=== PATIENT | male | born 1945 | race Caucasian/White ===

== ENCOUNTER 2022-10-16 12:23 | Inpatient (IN) | payer MEDICARE, MEDICAID, SELFPAY ==
[2022-10-16] VITALS (14 sets, daily range): BP systolic 103–124; BP diastolic 49–75; PULSE 61–98; RESP 15–34; TEMP 36.4–37.1; O2SAT 94–98; BMI 14.1
--- NOTE | 2022-10-16 12:38 | ED_ITS ---
HPI - SOB/Dyspnea General: Chief Complaint: Shortness of Breath/Dyspnea Stated Complaint: RESP. DISTRESS Time Seen by Provider: 10/16/22 12:38 History of Present Illness: HPI Narrative: Mr Rodriguez is a 77-year-old gentleman with longstanding history of tobaccoism presenting to the emergency department for respiratory symptoms. The patient himself has not seen a doctor in some period of time and denies known medical diagnoses. He reports worsening respiratory state for years however perhaps worse over the past few days. He notes increased weakness, fatigue, cough, low back pain, generalized malaise. Intensity symptoms is severe. He does not require oxygen at baseline however is currently requiring supplemental oxygen. No other specific changes in health, exacerbating, or alleviating factors identified. Onset (ago): year(s) Context: other Timing: progressively worsening Severity: severe Exacerbating factors: exertion Relieving factors: nothing Known history of: other (Cigarette smoking) Associated symptoms: Reports chest pain, cough and other Review of Systems General: Reports: 10 or more systems reviewed and unremarkable except in HPI and below Card: Reports: chest pain [facility] ED PFSH: Medical History (Updated 10/19/22 @ 16:39 by Herman Evans MD) Pulmonary cachexia due to COPD Tobacco use disorder Surgical History (Updated 10/16/22 @ 16:35 by Herman Evans MD) History of appendectomy History of hernia repair Family History Father CAD (coronary artery disease) Myocardial infarction Social History Smoking and tobacco status: current every day smoker Alcohol intake: former Substance/Drug Use: never Physical Exam Const: COMMON NORMALS: alert GENERAL APPEARANCE: cooperative and ill appe aring NUTRITIONAL APPEARANCE: cachectic HENMT: COMMON NORMALS: normocephalic and atraumatic HEAD & SCALP: normocephalic and atraumatic Eye: COMMON NORMALS: conjunctivae normal CONJUNCTIVA: Yes conjunctivae normal SCLERA: sclerae normal Neck/C-Spine: COMMON NORMALS: supple GENERAL: Yes trachea midline Resp: EFFORT & INSPECTION: Yes tachypneic AUSCULTATION: diminished lung sounds Cardio: COMMON NORMALS: regular rate and regular rhythm RATE: regular rate RHYTHM: regular rhythm GI: COMMON NORMALS: Soft to palpation PALPATION: Yes Soft to palpation and No Tenderness to palpation present (GI) Extremity: GENERAL: Yes normal exam except as noted and No edema Neuro: COMMON NORMALS: moves all extremities SENSORIUM/ORIENTATION: Yes alert and No Orientation impaired Psych: COMMON NORMALS: mental status grossly normal and Normal thought process present THOUGHT PROCESS: Normal thought process present Course Vital Signs: Vital signs: Vital Signs Temperature 98.1 F 10/19/22 19:39 Pulse Rate 68 10/19/22 20:50 Respiratory Rate 15 10/19/22 20:50 Blood Pressure 103/49 10/19/22 19:39 Pulse Oximetry 96 10/19/22 20:50 Oxygen Delivery Me thod Oxymask 10/19/22 20:50 Oxygen Flow Rate 2 10/19/22 20:50 Fraction of Inspir ed Oxygen 35 10/16/22 13:34 MDM - SOB/Dyspnea Medical Decision Making 77-year-old gentleman presenting to the ER for respiratory distress. He is requ iring supplemental oxygen which is new for him. Clinically patient appears to, certainly have severe end-stage COPD however he is never formally been diagnosed. EKG demonstrate sinus rhythm with mild irregularity, normal axis and intervals, nonspecific ST segment abnormalities, no STEMI. ABG demonstrates hypercapnic hypoxic respiratory failure and RT treatment/BiPAP ordered. Labs otherwise with no leukocytosis, normal hemoglobin and platelet count. Metabolic panel without significant derangement to explain symptoms. Borderline range 2-hour delta troponin. COVID-negative. Chest x-ray with possible lung nodule, no lobar consolidation or pneumothorax. During ED course patient treated with RT treatment, steroids, antibiotics. He still requires supplemental oxygen/BiPAP. Most likely allergy of patient symptoms is exacerbation of underlying COPD. The results of ED evaluation were discussed with the patient including plan for admission due to requirement for level of care not available if discharged to prevent significant worsening/deterioration. Patient agreeable with plan. Discussed with hospitalist service who was agreeable to admit patient. Medical Records I reviewed the patient's medical records. Lab Data I reviewed the patient's lab results. 10/16/22 12:05 10/16/22 12:05 Labs/Radiology: Radiology Impressions Chest X-Ray 10/16/22 12:51 IMPRESSION: Severe emphysema particularly in the upper lobes. No focal consolidation to suggest pneumonia. Suspected about 1.2 cm lung nodule in the left midlung. If no prior films are available for comparison to confirm long-term stability further evaluation with CT chest is recommended. Chest CT 10/16/22 16:27 IMPRESSION: 1. No lung nodule in the left midlung corresponding to the finding described in the report of chest x-ray of the same date. 12 x 4 mm linear spiculated density posteriorly in the right upper lobe likely represents a scar. If no prior CT is available to confirm long-term stability 3 months follow-up is recommended to exclude progression. 2. Severe emphysema and chronic bronchitis with no acute opacity to suggest pneumonia. The right ventricle is larger than the left ventricle with no cardiomegaly for clinical correlation with pulmonary hypertension. 3. 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 Clinical correlation is recommended. COMMENTS: In the absence of a history or active diagnosis of lung cancer, it is recommended that this patient with emphysema be evaluated for enrollment in a low dose CT lung cancer screening program. Laboratory Results WBC 5.6 10^3/uL (4.0-10.0) 10/16/22 12:05 RBC 4.59 10^6/uL (4.1-5.3) 10/16/22 12:05 Hgb 15.1 g/dL (11.7-16.6) 10/16/22 12:05 Hct 47.7 % (42.0-52.0) 10/16/22 12:05 MCV 103.9 fl (80-94) H 10/16/22 12:05 MCH 32.9 pg (28.0-34.0) 10/16/22 12:05 MCHC 31.7 g/dL (30.0-36.0) 10/16/22 12:05 RDW 13.0 % (12.1-15.1) 10/16/22 12:05 Plt Count 199 10^3/cmm (130-400) 10/16/22 12:05 MPV 10.2 fL (7.4-10.4) 10/16/22 12:05 Neut % (Auto) 70.9 % 10/16/22 12:05 Lymph % (Auto) 10.8 % 10/16/22 12:05 Hyde % (Auto) 17.2 % 10/16/22 12:05 Eos % (Auto) 0.0 % 10/16/22 12:05 Baso % (Auto) 0.9 % 10/16/22 12:05 Neut # (Auto) 4.00 10^3/uL (1.8-7.7) 10/16/22 12:05 Lymph # (Auto) 0.6 10^3/uL (0.8-4.8) L 10/16/22 12:05 [place] # (Auto) 1.0 10^3/uL (0.2-0.9) H 10/16/22 12:05 Eos # (Auto) 0.0 10^3/uL (0.0-0.8) 10/16/22 12:05 Baso # (Auto) 0.1 10^3/uL (0.0-0.1) 10/16/22 12:05 Nucleated RBC % (auto) 0 % 10/16/22 12:05 Nucleated RBCs # 0.0 /100WBC 10/16/22 12:05 Specimen Type Arterial 10/16/22 13:03 Sample Site Radial, right 10/16/22 13:03 ABG pH 7.30 (7.35-7.45) L 10/16/22 13:03 ABG pCO2 63.0 mmHg (35-45) H* 10/16/22 13:03 ABG pO2 87.4 mmHg (80.0-100.0) 10/16/22 13:03 ABG HCO3 30.6 mmol/L (22-26) H 10/16/22 13:03 ABG Base Excess 2.0 mmol/L (-2.0-2.0) 10/16/22 13:03 Humberto Test Pos 10/16/22 13:03 Hematocrit 48.7 % (42-52) 10/16/22 13:03 Hgb O2 Saturation 94.4 % (95-100) L 10/16/22 13:03 Carboxyhemoglobin 1.3 %THgb (0.4-20.1) 10/16/22 13:03 Methemoglobin 0.8 % (0.4-1.5) 10/16/22 13:03 Total Hemoglobin 15.9 g/dL (14-18) 10/16/22 13:03 O2 Delivery Device Nc 10/16/22 13:03 O2 Liters/Min 4.5 % 10/16/22 13:03 Commissioned Police Officer ID Carlos 10/16/22 13:03 Sodium 137 mmol/L (136-145) 10/16/22 12:05 Potassium 4.6 mmol/L (3.5-5.1) 10/16/22 12:05 Chloride 97 mmol/L (98-107) L 10/16/22 12:05 Carbon Dioxide 28 mmol/L (22-29) 10/16/22 12:05 Anion Gap 16.6 (5-19) 10/16/22 12:05 BUN 26 mg/dL (8-23) H 10/16/22 12:05 Creatinine 0.6 mg/dL (0.7-1.2) L 10/16/22 12:05 GFR Calculation Not Reportable 10/16/22 12:05 Glucose 129 mg/dL (65-115) H 10/16/22 12:05 Calculated Osmolality 290 mOsm/kg (285-295) 10/16/22 12:05 Lactic Acid 1.0 mmol/L (0.5-2.2) 10/16/22 14:56 Calcium 8.4 mg/dL (8.5-10.5) L 10/16/22 12:05 Total Bilirubin 0.2 mg/dL (0.15-1.2) 10/16/22 12:05 AST 31 U/L (0-40) 10/16/22 12:05 ALT 23 U/L (0-41) 10/16/22 12:05 Alkaline Phosphatase 91 U/L (40-130) 10/16/22 12:05 Troponin T Baseline 41 ng/L (0-15) H 10/16/22 12:05 Troponin T 120 Minute 49.49 ng/L (0-15) H 10/16/22 14:42 Delta Troponin T 8.49 ABS# (0-10) 10/16/22 14:42 Troponin T Hi Sens 6Hr 39.49 ng/L (0-15) H 10/16/22 19:00 Troponin T Hi Sens 6Hr Delta -1.51 ng/L (0-12) L 10/16/22 19:00 C-Reactive Protein 36.3 mg/L (0.0-4.9) H 10/16/22 12:05 NT-Pro-B Natriuret Pep 584 pg/mL (0-450) H 10/16/22 12:05 Total Protein 6.5 g/dL (6.6-8.7) L 10/16/22 12:05 Albumin 3.9 g/dL (3.5-5.2) 10/16/22 12:05 Globulin 2.6 g/dL (1.3-4.6) 10/16/22 12:05 Procalcitonin 0.22 ng/mL (0-0.5) 10/16/22 12:05 SARS-CoV-2 Ag (Rapid) negative (Negative) 10/16/22 19:07 Discharge Plan Discharge Patient Disposition: Placed in Observation Admit Provider: Herman Evans Clinical Impression: Acute exacerbation of chronic obstructive airways disease, Respiratory failure with hypoxia and hypercapnia Coding Level of Care Code ED Coiled Coil Inspector for Vesna Douglas
--- NOTE | 2022-10-16 12:51 | XRR_ITS ---
PROCEDURE INFORMATION: Exam: XR Chest Exam date and time: 10/16/2022 1:17 PM Age: 77 years old Clinical indication: Shortness of breath; Additional info: SOB TECHNIQUE: Imaging protocol: Radiologic exam of the chest. Views: 1 view. COMPARISON: No relevant prior studies available. FINDINGS: Lungs: Large lung volumes with loss of normal interstitial markings laterally in the lung apices compatible with severe emphysema. No focal consolidation. Questionable about 1.2 cm lung nodule in the left mid lung laterally interposed on the anterior segment of the left 5th rib. Pleural spaces: No pleural effusion. No pneumothorax. Heart/Mediastinum: No cardiomegaly. Bones/joints: No acute findings. XR/XR chest 1V portable [id number] IMPRESSION: Severe emphysema particularly in the upper lobes. No focal consolidation to suggest pneumonia. Suspected about 1.2 cm lung nodule in the left midlung. If no prior films are available for comparison to confirm long-term stability further evaluation with CT chest is recommended.
--- NOTE | 2022-10-16 13:07 | ECG_ITS ---
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 Measurements Intervals [place] Rate: 89 P: 82 SC: 132 QRS: -81 QRSD: 88 T: 76 QT: 356 QTc: 434 Interpretive Statements SINUS RHYTHM WITH SINUS ARRHYTHMIA INDETERMINATE AXIS LOW QRS VOLTAGE IN PRECORDIAL LEADS [QRS DEFLECTION < 1.0 mV IN CHEST LEADS] POSSIBLE RIGHT VENTRICULAR CONDUCTION DELAY [RSR (QR) IN V1/V2] ANTEROSEPTAL MYOCARDIAL INFARCTION , OF INDETERMINATE AGE [40+ ms Q WAVE IN V1-V4] No previous ECG available for comparison Electronically Signed On 10-16-2022 16:57:22 CDT by Kavon Mckoy M.D. [id number]
[2022-10-16 13:10] LABS: Basophils # 0.1 10^3/uL (0.0-0.1); Basophils % 0.9 %; Hematocrit 47.7 % (42.0-52.0); Hemoglobin 15.1 g/dL (11.7-16.6); Lymphocytes # 0.6 10^3/uL (0.8-4.8); Lymphocytes % 10.8 %; Mean Corpuscular HGB Conc 31.7 g/dL (30.0-36.0); Mean Corpuscular Hemoglobin 32.9 pg (28.0-34.0); Mean Corpuscular Volume 103.9 fl (80-94); Mean Platelet Volume 10.2 fL (7.4-10.4); Monocytes % 17.2 %; Neutrophils % 70.9 %; Nucleated Red Blood Cells % 0 %; Platelet Count 199 10^3/cmm (130-400); Red Blood Count 4.59 10^6/uL (4.1-5.3); White Blood Count 5.6 10^3/uL (4.0-10.0)
[2022-10-16 13:14] LABS: Arterial Blood Gas Hematocrit 48.7 % (42-52); Blood Gas Allen Test Pos; Blood Gas LPM 4.5 %; Blood Gas Operator Identificat WALCI; Blood Gas Sample Site Radial, right; Blood Gas Sample Type Arterial; Carboxyhemoglobin 1.3 %THgb (0.4-20.1); HCO3 ABG 30.6 mmol/L (22-26); HGB O2 Sat 94.4 % (95-100); Methemoglobin 0.8 % (0.4-1.5); Oxygen Device NC; PO2 ABG 87.4 mmHg (80.0-100.0); Total Hemoglobin 15.9 g/dL (14-18)
[2022-10-16] MEDS: ipratropium-albuterol 3 mL Neb INHALATION ×2 (13:28→20:47)
[2022-10-16 13:30] LABS: Troponin(5th) Baseline 41 ng/L (0-15)
[2022-10-16 13:35] LABS: NT Pro B Type Natriuretic Pept 584 pg/mL (0-450); Procalcitonin 0.22 ng/mL (0-0.5)
[2022-10-16 13:46] LABS: Alanine Aminotransferase 23 U/L (0-41); Albumin Level 3.9 g/dL (3.5-5.2); Alkaline Phosphatase 91 U/L (40-130); Anion Gap 16.6 (5-19); Aspartate Amino Transferase 31 U/L (0-40); Blood Urea Nitrogen 26 mg/dL (8-23); C Reactive Protein 36.3 mg/L (0.0-4.9); Calcium 8.4 mg/dL (8.5-10.5); Carbon Dioxide 28 mmol/L (22-29); Chloride 97 mmol/L (98-107); Globulin 2.6 g/dL (1.3-4.6); Glucose 129 mg/dL (65-115); Osmolality Calculated 290 mOsm/kg (285-295); Potassium 4.6 mmol/L (3.5-5.1); Sodium 137 mmol/L (136-145); Total Bilirubin 0.2 mg/dL (0.15-1.2); Total Protein 6.5 g/dL (6.6-8.7)
[2022-10-16] MEDS: cefTRIAXone 1,000 MG in sodium chloride 0.9% (plus) 50 ML 100 MG IV (14:22)
[2022-10-16] MEDS: dexamethasone 10 mg/mL INJ IVP (14:22)
[2022-10-16] MEDS: doxycycline 100 MG in sodium chloride 0.9% (plus) 100 ML IV (14:23)
--- NOTE | 2022-10-16 14:47 | P.HP_ITS ---
Providers/Chief Complaint Admitting Physician: Herman Evans MD Primary Care Provider: Kb Henson MD Chief Complaint: RESP. DISTRESS History of Present Illness Hung Rodriguez is a 77 year old male with a past medical history significant for tobacco use disorder who presents to the emergency department with severe respiratory distress. Patient reports breathing difficulty even at rest for the past three days. He notes that for the past many years he gets short of breath with minimal exertion. Also endorses chronic non-productive cough. He reports he has not seen a physician in many years but his breathing has markedly worsen the past three days prompting him to seek care. Reports exertion worsens symptoms. Resting somewhat helps his symptoms. Denies other aggravating or alleviating factors. He reports an extensive history of cigarette smoking. He reports he starting smoking cigarettes at age 12. He reports at his max, he was smoking four to five packs of unfiltered cigarettes per day. He reports about 8 years ago he switched to filtered cigarettes. He reports more recently he has reduced his smoking to half to one pack per day. He denies fevers, nausea, emesis, chest pain, or abdominal pain. In the ED, patient was found to have hypercapnic respiratory failure requiring non-invasive mechanical ventilation. Review of Systems Narrative: A complete review of systems was obtained and is negative except as stated in HPI. Medications/Allergies Home Medications Medication Instructions Recorded Confirmed Last Taken Type No Known Home Medications 10/16/22 10/16/22 Unknown History Allergies Allergy/AdvReac Type Severity Reaction Status Date / Time No Known Allergies Allergy Unverified 10/16/22 12:55 PFSH Acute PFSH: Medical History (Updated 10/16/22 @ 16:36 by Herman Evans MD) Pulmonary cachexia due to COPD Tobacco use disorder Surgical History (Updated 10/16/22 @ 16:35 by Herman Evans MD) History of appendectomy History of hernia repair Family History Father CAD (coronary artery disease) Myocardial infarction Social History Smoking and tobacco status: current every day smoker Alcohol intake: former Substance/Drug Use: never Vitals/I&O/Wt Last Vital Signs Pulse 88 10/16/22 13:36 Resp 18 10/16/22 14:00 BP 103/65 10/16/22 14:00 Pulse Ox 98 10/16/22 14:00 O2 Del Method BiPAP 10/16/22 13:24 FiO2 35 10/16/22 13:34 Weight last 48 hrs Weight 40.823 kg Physical Exam Narrative: General: Patient is in respiratory distress. Frail and cachetic appearing. Head: Temporal wasting. EOMI. Neck: No JVD. Cardiovascular: RRR. No gallops. No murmurs. No peripheral edema. Lungs: Poor air movement. Faint end expiratory wheezing. Moderate to severe respiratory distress. Speaks in very short sentences. Tachypnea. Skin: No jaundice. No rashes. Abdomen: Normal bowel sounds, abdomen soft and nontender. Scaphoid. Genito Urinary: Genital exam not performed since complaints not related. Rectal: Rectal exam not performed since no symptoms indicated blood loss. Extremities: No cyanosis or clubbing. Musculoskeletal: No swollen or erythematous joints. Neurological: Moves all 4 extremities. No myoclonus. Data 10/16/22 12:05 10/16/22 12:05 A&P Assessment and plan (1) Acute exacerbation of chronic obstructive airways disease: Acute COPD/emphysema exacerbation Severe emphysema on imaging No PFTs for review Status post IV steroids in ED Start prednisone in AM Start DuoNebs RT eval and treat Pulse oximetry Start azithromycin, QTc reviewed (2) Respiratory failure with hypoxia and hypercapnia: Acute hypoxic hypercapnic respiratory failure requiring non-invasive mechanical ventilation 2/2 acute COPD exacerbation BiPAP as needed Serial blood bases as needed Treat underlying COPD (3) Pulmonary nodule: Patient reports if malignancy, he would not want treatment He consents to CT chest w/ contrast to further evaluate (4) Myocardial injury: Elevated troponin and BNP Denies chest pain Trend troponin Echocardiogram ordered (5) Tobacco use disorder: Would benefit from cessation (6) Pulmonary cachexia due to COPD: Supportive care Plan DVT ppx: Low Risk Code Status: Full Code Attestations 2 Medical Necessity Statement*: Patient presents with severe respiratory distress secondary to acute COPD exacerbation requiring non-invasive mechanical ventilation with expected hospitalization for further work up and treatment not expected to cross two midnights. Coding Level of Care Code Acute Code for [facility] Fwd Diagnoses Acute exacerbation of chronic obstructive airways disease J44.1 Respiratory failure with hypoxia and hypercapnia J96.91; J96.92 Pulmonary nodule R91.1 Myocardial injury I5A Tobacco use disorder F17.200 Pulmonary cachexia due to COPD J44.9; R64
[2022-10-16] MEDS: albuterol 2.5 mg/3 mL Neb INHALATION ×3 (14:52)
[2022-10-16 15:11] LABS: Troponin 5 2HR 49.49 ng/L (0-15)
[2022-10-16 15:20] LABS: Troponin 5 2HR Delta 8.49 ABS# (0-10)
--- NOTE | 2022-10-16 16:27 | CTR_ITS ---
PROCEDURE INFORMATION: Exam: CT Chest With Contrast; Diagnostic Exam date and time: 10/16/2022 6:00 PM Age: 77 years old Clinical indication: Cough and shortness of breath; Smoker's cough, severe emphysema. Abnormal radiologic finding (questionable 1.2 cm lung nodule in the left midlung on chest x-ray of the same date). Evaluate for malignancy. TECHNIQUE: Imaging protocol: Diagnostic computed tomography of the chest with contrast. Radiation optimization: All CT scans at this facility use at least one of these dose optimization techniques: automated exposure control; mA and/or kV adjustment per patient size (includes targeted exams where dose is matched to clinical indication); or iterative reconstruction. Contrast material: OMNI 350; Contrast volume: 100 ml; Contrast route: INTRAVENOUS (IV); REPORTING DATA: Count of CT and Cardiac NM exams in prior 12 months: This patient has received 0 known CTs and 0 known cardiac nuclear medicine studies in the 12 months prior to the current study. COMPARISON: CR XR chest 1V portable [id number] 10/16/2022 1:17 PM RADIATION DOSE METRICS: Total DLP (mGy-cm): 235 FINDINGS: Lungs: There is severe emphysema. There is no acute opacity to suggest pneumonia. There is mild bronchial thickening in the lower lobes suggestive of bronchitis. There are no significant retained endobronchial secretions. There is no lung nodule in the left midlung corresponding to finding described in the report of CT chest of the same date. 12 x 4 mm linear spiculated density posteriorly in the right upper lobe on series 3, image 17 likely represents a scar. Pleural spaces: Unremarkable. No pneumothorax. No pleural effusion. Heart: No cardiomegaly. The right ventricle is larger than the left ventricle. No pericardial effusion. Coronary arteries: Mild coronary artery calcification is present. Lymph nodes: No enlarged lymph nodes. Vasculature: There is complete occlusion of the abdominal aorta immediately below the origin of the renal arteries. There are multiple arterial collaterals in the anterior and lateral abdominal wall and in the paravertebral areas suggestive of chronic rather than acute aortic occlusion. No aortic aneurysm. No pulmonary embolism. Bones/joints: No acute fracture. No suspicious lytic or sclerotic bone lesions. Soft tissues: Unremarkable. CT/CT chest w con* [id number] IMPRESSION: 1. No lung nodule in the left midlung corresponding to the finding described in the report of chest x-ray of the same date. 12 x 4 mm linear spiculated density posteriorly in the right upper lobe likely represents a scar. If no prior CT is available to confirm long-term stability 3 months follow-up is recommended to exclude progression. 2. Severe emphysema and chronic bronchitis with no acute opacity to suggest pneumonia. The right ventricle is larger than the left ventricle with no cardiomegaly for clinical correlation with pulmonary hypertension. 3. 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 Clinical correlation is recommended. COMMENTS: In the absence of a history or active diagnosis of lung cancer, it is recommended that this patient with emphysema be evaluated for enrollment in a low dose CT lung cancer screening program.
--- NOTE | 2022-10-16 16:27 | USCV_ITS ---
Hung Rodriguez Age: 77 Gender: M : 1945 Exam Date: 10/16/2022 19:03 Ordering Phys: Herman Evans MD Technologist: KANDI Exam Location: [facility] [place] Indication: tobaccoism, hypoxia, elevated troponin. BP: 122 / 67 HR: 91 Rhythm: Partly atrial fibrillation, some strings of sinus rhythm Technical Quality: Adequate MEASUREMENTS (Male / Female) Normal Values 2D ECHO LV Diastolic Diameter PLAX 3.1 cm 4.2 - 5.9 / 3.9 - 5.3 cm LV Systolic Diameter PLAX 1.8 cm IVS Diastolic Thickness 1.0 cm 0.6 - 1.0 / 0.6 - 0.9 cm IVS Systolic Thickness 0.8 cm LVPW Diastolic Thickness 0.9 cm 0.6 - 1.0 / 0.6 - 0.9 cm LVPW Systolic Thickness 1.4 cm LVOT Diameter 1.8 cm LV Ejection Fraction 2D Teich 72.8 % LV Ejection Fraction MOD 2C 55.1 % LV Ejection Fraction 2C AL 54.7 % LA Diameter 2.5 cm LA Width 3.4 cm LA Height 4.4 cm RA Width 3.0 cm RA Height 2.8 cm Aorta at Sinotubular Diameter 2.9 cm IVC Diameter 1.6 cm M-MODE Aortic Annulus Diameter 3.2 cm LA Ao Ratio MM 0.8 MV E Point Septal Separation 0.0 cm DOPPLER AV Peak Velocity 141.0 cm/s LVOT Peak Velocity 77.0 cm/s AV Area Cont Eq vti 1.3 cm squared AV Area Cont Eq pk 1.4 cm squared MV Area PHT 3.7 cm squared Mitral E to A Ratio 0.8 MV E' Velocity 74.0 cm/s TR Peak Velocity 270.0 cm/s TR Peak Gradient 29.2 mmHg TV Peak E Velocity 39.0 cm/s Right Atrial Pressure 5.0 mmHg Pulmonary Artery Systolic Pressu 34.2 mmHg PV Peak Velocity 100.0 cm/s RV Acceleration Time 0.1 s RV Ejection Time 0.4 s RV AcT/ET 0.4 FINDINGS Left Ventricle Technically difficult study. Only subcostal views were obtained. Possibly normal LV size and ejection fraction. Right Ventricle The right ventricle appears to be dilated with a diminished ejection fraction. Right Atrium Mildly dilated right atrium Left Atrium Possibly of normal size Mitral Valve Thickened mitral valve. Aortic Valve Thickened aortic valve. Tricuspid Valve Trace to mild tricuspid valve regurgitation. Pulmonic Valve No gross abnormality noted Pericardium No pericardial effusion. Aorta Normal aortic annulus size. IVC Inferior vena cava not visualized. CONCLUSIONS Technically difficult study. Only subcostal views were obtained. Possibly normal LV size and ejection fraction. The right ventricle appears to be dilated with a diminished ejection fraction. Mildly dilated right atrium. Thickened aortic and mitral valves Trace to mild tricuspid valve regurgitation. Estimated PA pressure of 34 mmHg, could be an underestimation because of poor Doppler signals Dr Clarissa Downs MD FAC (Electronically Signed) Final Date: 16 Oct 2022 21:37 S
--- NOTE | 2022-10-16 17:00 | ECG_ITS ---
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 Measurements Intervals [place] Rate: 69 P: 82 ME: 151 QRS: 66 QRSD: 90 T: 78 QT: 377 QTc: 406 Interpretive Statements SINUS RHYTHM INDETERMINATE AXIS LOW QRS VOLTAGE IN PRECORDIAL LEADS [QRS DEFLECTION < 1.0 mV IN CHEST LEADS] POSSIBLE RIGHT VENTRICULAR CONDUCTION DELAY [RSR (QR) IN V1/V2] ANTEROSEPTAL MYOCARDIAL INFARCTION , OF INDETERMINATE AGE [40+ ms Q WAVE IN V1-V4] Compared to ECG 10/16/2022 13:07:29 Sinus arrhythmia no longer present Myocardial infarct finding still present Electronically Signed On 10-17-2022 7:19:23 CDT by Kavon Mckoy M.D. [id number]
[2022-10-16] MEDS: iohexol 350 mg/mL 500 mL Btl (per mL) IV (18:04)
--- NOTE | 2022-10-16 18:52 | ECG_ITS ---
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 Measurements Intervals [place] Rate: 87 P: 77 IN: 144 QRS: -1 QRSD: 82 T: 67 QT: 374 QTc: 451 Interpretive Statements SINUS RHYTHM WITH SINUS ARRHYTHMIA INDETERMINATE AXIS LOW QRS VOLTAGE IN PRECORDIAL LEADS [QRS DEFLECTION < 1.0 mV IN CHEST LEADS] PATTERN CONSISTENT WITH PULMONARY DISEASE POSSIBLE RIGHT VENTRICULAR CONDUCTION DELAY [RSR (QR) IN V1/V2] SEPTAL MYOCARDIAL INFARCTION , PROBABLY OLD [40+ ms Q WAVE IN V1/V2] Compared to ECG 10/16/2022 17:00:22 No significant changes Electronically Signed On 10-17-2022 7:19:53 CDT by Kavon Mckoy M.D. [id number]
[2022-10-16 19:32] LABS: Troponin 5 6HR 39.49 ng/L (0-15); Troponin 5 6HR Delta -1.51 ng/L (0-12)
[2022-10-16 19:45] LABS: SARS Covid-2 Antigen negative (Negative)
[2022-10-17] VITALS (12 sets, daily range): BP systolic 104–131; BP diastolic 51–64; PULSE 56–79; RESP 15–20; TEMP 36.6–36.8; O2SAT 91–99
[2022-10-17] MEDS: ipratropium-albuterol 3 mL Neb INHALATION ×4 (01:05→20:31)
[2022-10-17] MEDS: predniSONE 20 mg Tablet 40 MG PO (08:32)
[2022-10-17] MEDS: azithromycin 250 mg Tablet 500 MG PO (08:32)
--- NOTE | 2022-10-17 13:03 | PM.PN ---
Subjective Subjective: Patient remains in respiratory distress albeit improved from prior exam. Endorses shortness of breath with cough often with prolonged coughing episodes. Reports cough remains non-productive. Denies fevers, chillls, nausea or emesis. Vitals/I&O/Wt Last Vital Signs Temp 98.2 F 10/17/22 07:30 Pulse 65 10/17/22 07:56 Resp 18 10/17/22 07:56 BP 112/62 10/17/22 07:30 Pulse Ox 93 10/17/22 07:56 O2 Del Method Nasal Cannula 10/17/22 07:56 O2 Flow Rate 4 10/17/22 08:00 FiO2 35 10/16/22 13:34 10/16/22 10/17/22 10/17/22 22:59 06:59 14:59 Intake Total 750 / 750 240 / 990 Output Total 250 / 250 250 / 500 Balance 500 / 500 -10 / 490 Weight last 48 hrs Weight 40.823 kg Physical Exam Narrative: General: Patient is in mild to moderate respiratory distress. Frail and cachetic appearing. Head: Temporal wasting. EOMI. Neck: No JVD. Cardiovascular: RRR. No gallops. No murmurs. No peripheral edema. Lungs: Poor air movement. Faint end expiratory wheezing. Mild to moderate respiratory distress. Speaks in short sentences. Tachypnea. Skin: No jaundice. No rashes. Abdomen: Normal bowel sounds, abdomen soft and nontender. Scaphoid. Extremities: No cyanosis or clubbing. Musculoskeletal: No swollen or erythematous joints. Neurological: Moves all 4 extremities. No myoclonus. Data 10/16/22 12:05 10/16/22 12:05 A&P Assessment and plan (1) Acute exacerbation of chronic obstructive airways disease: Acute COPD/emphysema exacerbation Severe emphysema Remains in respiratory distress, not responding to treatment as intended Continue prednisone Continue DuoNebs Continue azithromycin (2) Respiratory failure with hypoxia and hypercapnia: Acute hypoxic hypercapnic respiratory failure requiring non-invasive mechanical ventilation 2/2 acute COPD exacerbation Continue supplemental respiratory support Will need walk study prior to discharge Treat underlying COPD (3) Pulmonary nodule: CT reviewed, findings suggestive of scaring Can follow up with repeat imaging as outpatient (4) Myocardial injury: TTE reviewed, right-sided abnormalities noted as expected given advanced lung disease (5) Tobacco use disorder: Would benefit from cessation (6) Pulmonary cachexia due to COPD: Supportive care Plan DVT ppx: Low Risk Code Status: Full Code Attestations Medical Necessity Statement*: Patient remains in respiratory distress for which he requires ongoing hospitalization for supplemental respiratory support and monitoring, steroids, nebulizing therapies, and supportive care. Coding Level of Care Code Acute Code for [facility] Fwd Diagnoses Acute exacerbation of chronic obstructive airways disease J44.1 Respiratory failure with hypoxia and hypercapnia J96.91; J96.92 Pulmonary nodule R91.1 Myocardial injury I5A Tobacco use disorder F17.200 Pulmonary cachexia due to COPD J44.9; R64
[2022-10-18] VITALS (12 sets, daily range): BP systolic 105–112; BP diastolic 53–65; PULSE 59–76; RESP 16–18; TEMP 36.4–36.7; O2SAT 94–98
[2022-10-18] MEDS: ipratropium-albuterol 3 mL Neb INHALATION ×4 (03:12→20:21)
[2022-10-18] MEDS: predniSONE 20 mg Tablet 40 MG PO (08:48)
[2022-10-18] MEDS: azithromycin 250 mg Tablet 500 MG PO (08:49)
--- NOTE | 2022-10-18 13:08 | PM.PN ---
Subjective Subjective: Patient reports he is still extremely short of breath even at rest he is short of breath. Reports he hasn't been out of bed much due to breathlessness. Reports ongoing cough, mostly non-productive still. Denies fevers, or chills. Reports appetite is ok. He states he doesn't think he is going to be able to care for his partner at home any longer as he feels like he has gotten too weak. Medications: Reviewed: Yes Vitals/I&O/Wt Last Vital Signs Temp 97.7 F 10/18/22 11:52 Pulse 66 10/18/22 11:52 Resp 18 10/18/22 11:52 BP 105/57 10/18/22 11:52 Pulse Ox 94 10/18/22 11:52 O2 Del Method Nasal Cannula 10/18/22 11:52 O2 Flow Rate 3 10/18/22 08:20 FiO2 35 10/16/22 13:34 10/17/22 10/18/22 10/18/22 22:59 06:59 14:59 Intake Total 200 / 320 250 / 570 Output Total 750 / 750 Balance 200 / 320 250 / 570 -750 / -750 Physical Exam Narrative: General: Patient is awake. Very frail and cachetic appearing. Very polite. Head: Temporal wasting. EOMI. Neck: No JVD. Cardiovascular: RRR. No gallops. No murmurs. No peripheral edema. Lungs: Poor air movement. Faint end expiratory wheezing. Still speaking in short sentences. Tachypnea when talking. Skin: No jaundice. No rashes. Abdomen: Normal bowel sounds, abdomen soft and nontender. Scaphoid. Extremities: No cyanosis or clubbing. Musculoskeletal: No swollen or erythematous joints. Neurological: Moves all 4 extremities. No myoclonus. Data 10/16/22 12:05 10/16/22 12:05 A&P Assessment and plan (1) Acute exacerbation of chronic obstructive airways disease: Acute COPD/emphysema exacerbation Severe emphysema a/q pulmonary cachexia Continue prednisone Continue DuoNebs Continue azithromycin (2) Respiratory failure with hypoxia and hypercapnia: Acute hypoxic hypercapnic respiratory failure requiring non-invasive mechanical ventilation 2/2 acute COPD exacerbation Continue supplemental respiratory support Will need walk study prior to discharge Treat underlying COPD (3) Pulmonary nodule: CT reviewed, findings suggestive of scaring, discuss findings kim/ Hung on 10/18 Can follow up with repeat imaging as outpatient (4) Myocardial injury: TTE reviewed, right-sided abnormalities noted as expected given advanced lung disease, d/w Hung (5) Tobacco use disorder: Would benefit from cessation (6) Pulmonary cachexia due to COPD: Supportive care Plan DVT ppx: Low Risk Code Status: Full Code Attestations Medical Necessity Statement*: Patient remains in severe COPD exacerbation and respiratory failure becoming symptomatic even at rest for which he requires ongoing hospitalization for supplemental respiratory support and monitoring, steroids, nebulizing therapies, and supportive care. Coding Level of Care Code Acute Code for g Fwd Diagnoses Acute exacerbation of chronic obstructive airways disease J44.1 Respiratory failure with hypoxia and hypercapnia J96.91; J96.92 Pulmonary nodule R91.1 Myocardial injury I5A Tobacco use disorder F17.200 Pulmonary cachexia due to COPD J44.9; R64
[2022-10-19] VITALS (14 sets, daily range): BP systolic 103–138; BP diastolic 43–82; PULSE 58–90; RESP 15–22; TEMP 36.6–37; O2SAT 93–99
[2022-10-19] MEDS: ipratropium-albuterol 3 mL Neb INHALATION ×4 (02:54→20:49)
[2022-10-19] MEDS: azithromycin 250 mg Tablet 500 MG PO (08:29)
[2022-10-19] MEDS: predniSONE 20 mg Tablet 40 MG PO (08:29)
--- NOTE | 2022-10-19 16:36 | PM.PN ---
Subjective Subjective: Patient reports he feels a little bit better today. He reports he was able to ambulate this morning a little bit which caused significant shortness of breath although improved from prior days. Continues to endorse cough which is nonproductive. Denies fevers, chills, nausea, or headaches. Medications: Reviewed: Yes Vitals/I&O/Wt Last Vital Signs Temp 98 F 10/19/22 16:00 Pulse 72 10/19/22 16:00 Resp 20 H 10/19/22 16:00 BP 114/43 10/19/22 16:00 Pulse Ox 93 10/19/22 16:00 O2 Del Method Nasal Cannula 10/19/22 13:40 O2 Flow Rate 2 10/19/22 13:40 FiO2 35 10/16/22 13:34 10/19/22 10/19/22 10/19/22 06:59 14:59 22:59 Intake Total 240 / 960 600 / 600 Balance 240 / 210 600 / 600 Physical Exam Narrative: General: Patient is awake. Very frail and cachetic appearing. Very polite. Lying in bed. Head: Temporal wasting. EOMI. Neck: No JVD. Cardiovascular: RRR. No gallops. No murmurs. No peripheral edema. Lungs: Slightly improved air movement. Able to speak in slightly longer sentences but still tachypnea when talking. Skin: No jaundice. No rashes. Abdomen: Normal bowel sounds, abdomen soft and nontender. Scaphoid. Extremities: No cyanosis or clubbing. Musculoskeletal: No swollen or erythematous joints. Neurological: Moves all 4 extremities. No myoclonus. Data 10/16/22 12:05 10/16/22 12:05 A&P Assessment and plan (1) Acute exacerbation of chronic obstructive airways disease: Acute COPD/emphysema exacerbation Severe emphysema a/q pulmonary cachexia Continue prednisone Continue DuoNebs Continue azithromycin (2) Respiratory failure with hypoxia and hypercapnia: Acute hypoxic hypercapnic respiratory failure requiring non-invasive mechanical ventilation 2/2 acute COPD exacerbation Continue supplemental respiratory support Will need walk study prior to discharge Treat underlying COPD (3) Pulmonary nodule: CT reviewed, findings suggestive of scaring, discuss findings kim/ Hung on 10/18 Can follow up with repeat imaging as outpatient (4) Myocardial injury: Continue supporitive care (5) Tobacco use disorder: Smoking cessation discussed for 4 minutes, patient is adamant he is not interested in quitting Encouraged smoking cessation Discussed harmful effects on his health (6) Pulmonary cachexia due to COPD: Supportive care (7) Debility: Debility physical deconditioning Physical therapy requested Plan DVT ppx: Low Risk Code Status: Full Code Attestations Medical Necessity Statement*: Patient requires ongoing hospitalization for ongoing respiratory distress for steroids, breathing treatments, and supportive care. Coding Level of Care Code Acute Code for [facility] Fwd Diagnoses Acute exacerbation of chronic obstructive airways disease J44.1 Respiratory failure with hypoxia and hypercapnia J96.91; J96.92 Pulmonary nodule R91.1 Myocardial injury I5A Tobacco use disorder F17.200 Pulmonary cachexia due to COPD J44.9; R64 Debility R53.81
[2022-10-19] MEDS: nicotine 21 mg Patch 1 PATCH TRANSDERMA (17:06)
--- NOTE | 2022-10-19 19:07 | PC.NURSE ---
BUSINESS SYSTEM MANAGER reported oxygen saturation of 83% at 1905. Patient refusing to wear nasal cannula, stating this his nose is sore and bleeding. This nurse attempted to educated patient and patient continued to refuse, stating that no one can make him wear it and that he will not be wearing it until his nose heals again.
--- NOTE | 2022-10-19 19:41 | PC.NURSE ---
Dr. Pan notified of patient refusing oxygen at 191. Dr. Pan requested patient be switched from nasal cannula to oxymask with humidification. Patient agreeable to wearing mask with humidifier, stated that it felt much more comfortable for his nose.
--- NOTE | 2022-10-19 21:02 | XRR_ITS ---
PROCEDURE INFORMATION: Exam: XR Chest Exam date and time: 10/19/2022 8:14 PM Age: 77 years old Clinical indication: Cough and shortness of breath; Patient HX: Persistent cough with SOB. ; Additional info: SOB and coughing TECHNIQUE: Imaging protocol: Radiologic exam of the chest. Views: 1 view. COMPARISON: CT chest w con* [id number] 10/16/2022 6:00 PM FINDINGS: Lungs: Severe emphysematous lung disease. Pulmonary hyperinflation. Negative for pulmonary consolidation. Negative for pulmonary mass. Pleural spaces: Unremarkable. No pleural effusion. No pneumothorax. Heart/Mediastinum: Unremarkable. No cardiomegaly. Bones/joints: Unremarkable. XR/XR chest 1V portable [id number] IMPRESSION: Negative for acute chest pathology.
[2022-10-19] MEDS: benzonatate 100 mg Capsule PO (21:29)
[2022-10-20] VITALS (13 sets, daily range): BP systolic 119–144; BP diastolic 66–77; PULSE 65–102; RESP 16–20; TEMP 36.4–36.8; O2SAT 86–98
[2022-10-20] MEDS: nicotine 4 mg lozenge MUCOUS MEM ×2 (01:53→07:00)
[2022-10-20] MEDS: ipratropium-albuterol 3 mL Neb INHALATION ×3 (02:16→14:37)
[2022-10-20 06:41] LABS: Basophils % 0.4 %; Eosinophils % 0.2 %; Hematocrit 48.3 % (42.0-52.0); Lymphocytes # 1.3 10^3/uL (0.8-4.8); Lymphocytes % 26.4 %; Mean Corpuscular HGB Conc 31.1 g/dL (30.0-36.0); Mean Corpuscular Hemoglobin 32.7 pg (28.0-34.0); Mean Corpuscular Volume 105.2 fl (80-94); Mean Platelet Volume 9.6 fL (7.4-10.4); Monocytes # 0.8 10^3/uL (0.2-0.9); Monocytes % 16.6 %; Neutrophils # 2.67 10^3/uL (1.8-7.7); Nucleated Red Blood Cells % 0 %; Platelet Count 215 10^3/cmm (130-400); Red Blood Count 4.59 10^6/uL (4.1-5.3); Red Cell Distribution Width 12.7 % (12.1-15.1); White Blood Count 4.8 10^3/uL (4.0-10.0)
[2022-10-20 07:02] LABS: Alanine Aminotransferase 20 U/L (0-41); Albumin Level 3.5 g/dL (3.5-5.2); Alkaline Phosphatase 78 U/L (40-130); Aspartate Amino Transferase 21 U/L (0-40); Blood Urea Nitrogen 22 mg/dL (8-23); Calcium 9.6 mg/dL (8.5-10.5); Carbon Dioxide 34 mmol/L (22-29); Chloride 95 mmol/L (98-107); Globulin 2.7 g/dL (1.3-4.6); Glucose 76 mg/dL (65-115); Osmolality Calculated 286 mOsm/kg (285-295); Sodium 137 mmol/L (136-145); Total Bilirubin 0.2 mg/dL (0.15-1.2); Total Protein 6.2 g/dL (6.6-8.7)
[2022-10-20 07:03] LABS: Anion Gap 12.7 (5-19); Potassium 4.7 mmol/L (3.5-5.1)
[2022-10-20] MEDS: predniSONE 20 mg Tablet 40 MG PO (08:31)
[2022-10-20] MEDS: nicotine 21 mg Patch 1 PATCH TRANSDERMA (08:31)
[2022-10-20] MEDS: azithromycin 250 mg Tablet 500 MG PO (08:31)
--- NOTE | 2022-10-20 10:28 | PC.SOCIAL ---
Pg 2 IMM Explained to pt Pg 2 IMM. No questions voiced. Provided pt a copy. Initialed, dated, & timed a copy & placed in chart.
--- NOTE | 2022-10-20 14:59 | PM.DCS ---
Discharge Providers Date of Admission: 10/17/22 14:43 Date of Discharge: October 20, 2022 Attending Provider at Admission: Herman Evans MD Attending Provider at Discharge: Herman Evans MD Consults: None Primary Care Provider: Kb Henson MD Diagnoses at Discharge Discharge Diagnosis (1) Acute exacerbation of chronic obstructive airways disease: Status: Inactive (2) Respiratory failure with hypoxia and hypercapnia: Status: Inactive (3) Pulmonary nodule: Status: Resolved (4) Myocardial injury: Status: Resolved (5) Tobacco use disorder: Status: Acute (6) Pulmonary cachexia due to COPD: Status: Acute (7) Debility: Status: Acute Reason for Visit Reason for Visit: RESP. DISTRESS Hospital Course Hospital Course luc Rodriguez is a 77 year old male with a past medical history significant for tobacco use disorder who presents to the emergency department with severe respiratory distress, found to have acute exacerbation of COPD with acute hypoxic hypercapnic respiratory failure, acute myocardial injury and pulmonary scar. There was initial concern for possible lung nodule for which ct imaging showed lung scarring rather than a mass or nodule. He was treated with steroids, breathing treatments, antibiotics, and supportive care. Symptoms improved. He was found to have home oxygen requirement. He was counseled extensively on no smoking, vaping, or open flames around oxygen. Smoking cessation counseling was provided. Patient improved and was discharged to home in stable condition. Physical Exam Narrative: General: Patient is awake.? Very frail and cachetic appearing.? Very polite.? Lying in bed. No acute distress. Head:? Temporal wasting. EOMI. Neck: No JVD. Cardiovascular: RRR. No gallops. No murmurs. No peripheral edema. Lungs: Moderate air movement. Prolonged expiratory phase. End expiratory wheezing present. Skin: No jaundice. No rashes. Abdomen: Normal bowel sounds, abdomen soft and nontender.? Scaphoid. Extremities: No cyanosis or clubbing. Musculoskeletal: No swollen or erythematous joints. Neurological: Moves all 4 extremities. No myoclonus. Discharge Data Studies Completed and Pending Completed Studies During Hospitalization Category Date Time Status CT chest w con* [id number] Routine Cat Scan 10/16/22 16:27 Completed XR chest 1V portable [id number] Stat Exams 10/16/22 12:51 Completed XR chest 1V portable [id number] Stat Exams 10/19/22 21:02 Completed CV. echo complete* [id number] Routine Ultrasound 10/16/22 16:27 Completed Radiology Impressions Chest CT 10/16/22 16:27 IMPRESSION: 1. No lung nodule in the left midlung corresponding to the finding described in the report of chest x-ray of the same date. 12 x 4 mm linear spiculated density posteriorly in the right upper lobe likely represents a scar. If no prior CT is available to confirm long-term stability 3 months follow-up is recommended to exclude progression. 2. Severe emphysema and chronic bronchitis with no acute opacity to suggest pneumonia. The right ventricle is larger than the left ventricle with no cardiomegaly for clinical correlation with pulmonary hypertension. 3. 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 Clinical correlation is recommended. COMMENTS: In the absence of a history or active diagnosis of lung cancer, it is recommended that this patient with emphysema be evaluated for enrollment in a low dose CT lung cancer screening program. Chest X-Ray 10/19/22 21:02 IMPRESSION: Negative for acute chest pathology. Laboratory Results WBC 4.8 10^3/uL (4.0-10.0) 10/20/22 06:33 Corrected WBC Cancelled 10/20/22 04:56 RBC 4.59 10^6/uL (4.1-5.3) 10/20/22 06:33 Hgb 15.0 g/dL (11.7-16.6) 10/20/22 06:33 Hct 48.3 % (42.0-52.0) 10/20/22 06:33 MCV 105.2 fl (80-94) H 10/20/22 06:33 MCH 32.7 pg (28.0-34.0) 10/20/22 06:33 MCHC 31.1 g/dL (30.0-36.0) 10/20/22 06:33 RDW 12.7 % (12.1-15.1) 10/20/22 06:33 Plt Count 215 10^3/cmm (130-400) 10/20/22 06:33 MPV 9.6 fL (7.4-10.4) 10/20/22 06:33 Gran % Cancelled 10/20/22 04:56 Neut % (Auto) 56.0 % 10/20/22 06:33 Lymph % (Auto) 26.4 % 10/20/22 06:33 [place] % (Auto) 16.6 % 10/20/22 06:33 Eos % (Auto) 0.2 % 10/20/22 06:33 Baso % (Auto) 0.4 % 10/20/22 06:33 Neut # (Auto) 2.67 10^3/uL (1.8-7.7) 10/20/22 06:33 Lymph # (Auto) 1.3 10^3/uL (0.8-4.8) 10/20/22 06:33 [place] # (Auto) 0.8 10^3/uL (0.2-0.9) 10/20/22 06:33 Eos # (Auto) 0.0 10^3/uL (0.0-0.8) 10/20/22 06:33 Baso # (Auto) 0.0 10^3/uL (0.0-0.1) 10/20/22 06:33 Absolute Gran (auto) Cancelled 10/20/22 04:56 Nucleated RBC % (auto) 0 % 10/20/22 06: Nucleated RBCs # 0.0 /100WBC 10/20/22 06:33 Specimen Type Arterial 10/16/22 13:03 Sample Site Radial, right 10/16/22 13:03 ABG pH 7.30 (7.35-7.45) L 10/16/22 13:03 ABG pCO2 63.0 mmHg (35-45) H* 10/16/22 13:03 ABG pO2 87.4 mmHg (80.0-100.0) 10/16/22 13:03 ABG HCO3 30.6 mmol/L (22-26) H 10/16/22 13:03 ABG Base Excess 2.0 mmol/L (-2.0-2.0) 10/16/22 13:03 Humberto Test Pos 10/16/22 13:03 Hematocrit 48.7 % (42-52) 10/16/22 13:03 Hgb O2 Saturation 94.4 % (95-100) L 10/16/22 13:03 Carboxyhemoglobin 1.3 %THgb (0.4-20.1) 10/16/22 13:03 Methemoglobin 0.8 % (0.4-1.5) 10/16/22 13:03 Total Hemoglobin 15.9 g/dL (14-18) 10/16/22 13:03 O2 Delivery Device Nc 10/16/22 13:03 O2 Liters/Min 4.5 % 10/16/22 13:03 Shoeblack ID Carlos 10/16/22 13:03 Sodium 137 mmol/L (136-145) 10/20/22 06:33 Potassium 4.7 mmol/L (3.5-5.1) 10/20/22 06:33 Chloride 95 mmol/L (98-107) L 10/20/22 06:33 Carbon Dioxide 34 mmol/L (22-29) H 10/20/22 06:33 Anion Gap 12.7 (5-19) 10/20/22 06:33 BUN 22 mg/dL (8-23) 10/20/22 06:33 Creatinine 0.6 mg/dL (0.7-1.2) L 10/20/22 06:33 GFR Calculation Not Reportable 10/20/22 06:33 Glucose 76 mg/dL (65-115) 10/20/22 06:33 Calculated Osmolality 286 mOsm/kg (285-295) 10/20/22 06:33 Lactic Acid 1.0 mmol/L (0.5-2.2) 10/16/22 14:56 Calcium 9.6 mg/dL (8.5-10.5) 10/20/22 06:33 Total Bilirubin 0.2 mg/dL (0.15-1.2) 10/20/22 06:33 AST 21 U/L (0-40) 10/20/22 06:33 ALT 20 U/L (0-41) 10/20/22 06:33 Alkaline Phosphatase 78 U/L (40-130) 10/20/22 06:33 Troponin T Baseline 41 ng/L (0-15) H 10/16/22 12:05 Troponin T 120 Minute 49.49 ng/L (0-15) H 10/16/22 14:42 Delta Troponin T 8.49 ABS# (0-10) 10/16/22 14:42 Troponin T Hi Sens 6Hr 39.49 ng/L (0-15) H 10/16/22 19:00 Troponin T Hi Sens 6Hr Delta -1.51 ng/L (0-12) L 10/16/22 19:00 C-Reactive Protein 36.3 mg/L (0.0-4.9) H 10/16/22 12:05 NT-Pro-B Natriuret Pep 584 pg/mL (0-450) H 10/16/22 12:05 Total Protein 6.2 g/dL (6.6-8.7) L 10/20/22 06:33 Albumin 3.5 g/dL (3.5-5.2) 10/20/22 06:33 Globulin 2.7 g/dL (1.3-4.6) 10/20/22 06:33 Procalcitonin 0.22 ng/mL (0-0.5) 10/16/22 12:05 SARS-CoV-2 Ag (Rapid) negative (Negative) 10/16/22 19:07 Procedures Performed None Vitals Last Vital Signs Temp 97.6 F 10/20/22 12:00 Pulse 77 10/20/22 14:48 Resp 18 10/20/22 14:37 BP 125/71 10/20/22 12:00 Pulse Ox 95 10/20/22 14:37 O2 Del Method Nasal Cannula 10/20/22 14:37 O2 Flow Rate 2 10/20/22 14:37 FiO2 35 10/16/22 13:34 Discharge Plan Discharge Patient Disposition: Home Condition: Stable Prescriptions: New benzonatate 100 mg Capsule 100 mg PO TID PRN (Reason: Cough) 30 Days Qty: 90 0RF prednisone 20 mg Tablet 40 mg PO DAILY 7 Days Qty: 7 0RF Zithromax Z-Aristides 250 mg tablet See Rx Instructions .ROUTE .COMPLEX Qty: 6 0RF Rx Instructions: For 250 mg dose pack: take 500 mg today (day 1), then 250 mg for 4 days (days 2-5) albuterol sulfate 90 mcg/actuation HFA aerosol inhaler 1 inh inhalation Q4H PRN (Reason: shortness of breath or wheezing) Qty: 8.5 0RF Symbicort 160-4.5 mcg/actuation HFA aerosol inhaler 1 inh inhalation BID Qty: 10.2 0RF Discharge Orders: Discharge Order (Routine); Ordered 05/13/23 Ordered By: Herman Evans Other Ambulatory Orders: DME: Oxygen (Order) Location: None Selected Ordered By: Herman Evans Referrals: Pulmonary [Provider Group] - 1 week (Establish care for severe emphysema) Heriberto Bella MD [Physician] - 10/25/22 10:00 am Discharge Diet: Advance as tolerated and Usual diet Discharge Activity: Resume usual activity, Increase activity as tolerated and As per PT/OT instructions Patient Instructions: Benzonatate (By mouth) (Tessalon Perles, Zonatuss), Albuterol (By breathing) (ProAir, AccuNeb, Proventil, Proventil..., Prednisone (By mouth), Azithromycin (By mouth) (Zithromax, Zithromax Tri-Aristides, Zithromax..., Budesonide/Formoterol (By breathing) (Symbicort), Heart Attack (DC), COPD (Chronic Obstructive Pulmonary Disease) (DC), Pulmonary Nodules (DC), Opioid Safety Activity Restrictions/Additional Instructions: 1. Recommend smoking cessation. 2. Take medications as prescribed. 3. Use oxygen as per home oxygen orders. 4. No smoking or flames around oxygen. 5. Follow up with providers. Discharge Attestations Time Spent in Discharge Care*: greater than 30 min Time Spent in Smoking Cessation: Patient again provided smoking cessation for greater than 10 minutes on day of discharge. Discussed further lung destruction and decreased quality of life. Discussed various treatment options. Again, patient declined any intervention. Quality Metrics Clinical Quality Measures [ No reported AMI, CVA or VTE this stay] Coding Level of Care Code Acute Code for [facility] Fwd Diagnoses Acute exacerbation of chronic obstructive airways disease J44.1 Respiratory failure with hypoxia and hypercapnia J96.91; J96.92 Pulmonary nodule R91.1 Myocardial injury I5A Tobacco use disorder F17.200 Pulmonary cachexia due to COPD J44.9; R64 Debility R53.81
--- NOTE | 2022-10-20 17:04 | PC.NURSE ---
Discharge education reviewed with patient at bedside, waiting on oxygen delivery and then patient can leave,
== END 2022-10-20 17:04 | disposition home or self-care (01) | DRG 190 ==
LOC: ER 14:44 → MEDSURG 15:07
PROVIDERS: Admitting Provider Internal Medicine; Emergency Provider Emergency Medicine; PCP Family Medicine; Visit Provider Internal Medicine
DX: J43.9 Emphysema, unspecified (principal); J96.01 Acute respiratory failure with hypoxia; J96.02 Acute respiratory failure with hypercapnia; F17.210 Nicotine dependence, cigarettes, uncomplicated; R77.8 Other specified abnormalities of plasma proteins; R91.8 Other nonspecific abnormal finding of lung field
CPT/HCPCS: 36415; 36600; 71045; 71260; 80053; 82805; 83605; 83880; 84145; 84484; 85025; 86140; 87426; 93005; 93306; 94640; 94660; 94664; 94760; 96365; 96367; 96375; 97110; 97161; G0378; J0696; J1100; J3490; J7512; J7613; Q0144; Q9967

== ENCOUNTER → 2022-12-25 13:18 | Outpatient (BNVA) | payer MEDICARE, MEDICAID, SELFPAY | PROVIDERS: PCP Family Medicine; Visit Provider Internal Medicine Pulmonary Disease | DX: J44.9 Chronic obstructive pulmonary disease, unspecified (principal); R64 Cachexia; Z71.6 Tobacco abuse counseling; Z68.1 Body mass index [BMI] 19.9 or less, adult; F17.210 Nicotine dependence, cigarettes, uncomplicated; R91.8 Other nonspecific abnormal finding of lung field; Z99.81 Dependence on supplemental oxygen | CPT/HCPCS: 99204 ==

== ENCOUNTER 2023-01-16 09:04 | Outpatient (CLI) | payer MEDICARE, MEDICAID, SELFPAY ==
--- NOTE | 2023-01-16 09:30 | CT_ITS ---
WS: [id number] CT CHEST TECHNIQUE: Noncontrast CT of the chest with coronal and sagittal reformatted images. CLINICAL INFORMATION: 3 month f/u linear spiculated density COMPARISON: CT chest 10/16/2022 DLP: 183.[address] scans at [facility] use at least one of these dose optimization techniques: automated e xposure control; mA and/or kV adjustment per patient size (includes targeted exams where dose is matc hed to clinical indication); or iterative reconstruction. FINDINGS: Advanced chronic emphysematous changes. Mild aortic calcification. Normal caliber thoracic aorta. Cor onary calcification. No axillary lymphadenopathy. Normal GE junction. Adrenal glands are normal. No hydronephrosis. Tiny esophageal hernia. Mild thorac ic kyphosis. Mild thoracic curve. Subsegmental ectasis with parenchymal scarring and slight groundgla ss opacities in the right lower lobe posteriorly slightly progressed Stable spiculated density in the right upper lobe posteriorly measuring 11 x 4 mm is unchanged. Recom mend 12-month follow-up to confirm stability. No acute pulmonary infiltrates. No focal pneumonia or p leural fluid. No other significant changes compared to previous. IMPRESSION: 1. Previously described 11 x 4 mm spiculated opacity in the right upper lobe posteriorly is unchange d. Recommend 12-month follow-up to confirm stability. 2. Advanced chronic emphysematous changes. 3. Subsegmental ectasis in the right lower lobe with patchy groundglass opacities slightly progresse d compared to previous. This is likely infectious or inflammatory. 4. Aortic and coronary calcification. 5. Tiny esophageal hiatal hernia.
== END 2023-01-16 09:05 | disposition home or self-care (01) ==
LOC: RAD 09:08
PROVIDERS: PCP Family Medicine; Visit Provider Internal Medicine Pulmonary Disease
DX: R93.89 Abnormal findings on diagnostic imaging of other specified body structures (principal); R91.8 Other nonspecific abnormal finding of lung field; I70.0 Atherosclerosis of aorta; I25.10 Atherosclerotic heart disease of native coronary artery without angina pectoris
CPT/HCPCS: 71250

== ENCOUNTER → 2023-02-28 14:35 | Outpatient (BNVA) | payer MEDICARE, MEDICAID, SELFPAY | PROVIDERS: PCP Family Medicine; Visit Provider Internal Medicine Pulmonary Disease | DX: J44.9 Chronic obstructive pulmonary disease, unspecified (principal); R64 Cachexia; Z71.6 Tobacco abuse counseling; F17.210 Nicotine dependence, cigarettes, uncomplicated; Z99.81 Dependence on supplemental oxygen | CPT/HCPCS: 99214 ==

== ENCOUNTER → 2023-11-08 09:19 | Outpatient (BNVA) | payer MEDICARE, MEDICAID, SELFPAY | PROVIDERS: PCP Family Medicine; Visit Provider Internal Medicine Pulmonary Disease | DX: J44.9 Chronic obstructive pulmonary disease, unspecified (principal); R64 Cachexia; F17.210 Nicotine dependence, cigarettes, uncomplicated; Z71.6 Tobacco abuse counseling; R09.89 Other specified symptoms and signs involving the circulatory and respiratory systems | CPT/HCPCS: 99214 ==